=== PATIENT | female | born 1950 | race Caucasian/White ===

== ENCOUNTER 2020-04-21 07:34 | Outpatient (CLI) | payer MEDICARE, SELFPAY ==
--- NOTE | ~2020-04-21 | US_ITS ---
EXAMINATION: US abdomen complete DATE: 04/21/2020 08:07 INDICATION: Upper abdominal pain. Right lower quadrant abdominal pain. TECHNIQUE: Multiple grayscale and Doppler ultrasound images of the abdomen were obtained. COMPARISON: Chest CT 07/27/2019 FINDINGS: Abdominal aorta is normal in caliber. Inferior vena cava is normal. The visualized portions of the head, body, and tail of the pancreas are normal. The liver is normal without focal lesion. Th ere is normal flow in main portal vein. The gallbladder is normal in size. No gallstones or gallbladd er wall thickening. There is no sonographic Harrington sign. The common duct is normal and measures 3 mm. The spleen is normal in size. The kidneys are normal in size. IMPRESSION: 1. Normal complete abdomen ultrasound. Reviewed, dictated and finalized at location A.
== END 2020-04-21 07:35 | disposition home or self-care (01) ==
LOC: ANHIMG 07:39
PROVIDERS: PCP Family Medicine; Visit Provider Family Medicine
DX: R10.9 Unspecified abdominal pain (principal); R63.4 Abnormal weight loss
CPT/HCPCS: 76700

== ENCOUNTER 2020-06-24 01:43 | Outpatient (CLI) | payer MEDICARE, SELFPAY ==
[2020-06-24 18:01] LABS: SARS-CoV-2 RNA PCR Negative
== END 2020-06-24 01:44 | disposition home or self-care (01) ==
LOC: ANHCOVIDDT 01:44
PROVIDERS: PCP Family Medicine; Visit Provider Internal Medicine Gastroenterology
DX: Z01.812 Encounter for preprocedural laboratory examination (principal); Z20.828 Contact with and (suspected) exposure to other viral communicable diseases
CPT/HCPCS: 87635; C9803; U0003

== ENCOUNTER 2020-06-27 02:59 | Day surgery (SDC) | payer MEDICARE, SELFPAY ==
[2020-06-15 14:30] VITALS: BMI 23.4
[2020-06-27 06:59] VITALS: BP 148/89; PULSE 106; RESP 16; TEMP 37.1; O2SAT 100; BMI 23.2
--- NOTE | 2020-06-27 07:18 | WPDANESEPPF ---
Anes - Initial Pre Proc Eval Procedure: Operation Date: 06/27/20 08:00 Proposed Procedures p Esophagogastroduodenoscopy - Chris Holley MD Date/Time: 06/27/20 07:18 Surgeon: Chris Holley MD Pre Op Diagnosis: Gerd/ Abdominal Pain Patient Data Age: 70 Gender: F Height: 5 ft 5 in Weight: 63.4 kg Last Vital Signs Temp 98.7 F 06/27/20 06:59 Pulse 106 H 06/27/20 06:59 Resp 16 06/27/20 06:59 BP 148/89 H 06/27/20 06:59 Pulse Ox 100 06/27/20 06:59 Allergies Allergy/AdvReac Type Severity Reaction Status Date / Time codeine Allergy Unknown Unknown Verified 06/27/20 06:53 Sulfa (Sulfonamide Allergy Unknown Unknown Verified 06/27/20 06:53 Antibiotics) caffeine AdvReac Nausea and Verified 06/27/20 06:53 Vomiting Home Medications Medication Instructions Recorded Confirmed Type levothyroxine 100 mcg tablet 100 mcg PO DAILY #90 tablet 01/19/20 06/15/20 Rx sucralfate 1 gram tablet 1 gm PO .COMPLEX #360 tablet 05/10/20 06/15/20 Rx Vitamin D3 06/15/20 History ascorbic acid (vitamin C) DAILY 06/15/20 History lactobacillus combination no.8 3,000 mmu cells PO DAILY 06/15/20 06/15/20 History [Adult Probiotic] magnesium 06/15/20 History mecobalamin (vitamin B12) 06/15/20 History yrzmwvpfkkwc-ecw-qchq-FA-vit K 1 tablet PO DAILY 06/15/20 06/15/20 History [Adults Multivitamin] Patient hx anesthesia problems: none Family hx anesthesia problems: none PMFSH Past Medical History Medical History (Updated 06/27/20 @ 07:18 by Hemant Bennett MD) GERD (gastroesophageal reflux disease) Hypothyroid Mixed hyperlipidemia Pacemaker Family History Family History (Updated 09/14/18 @ 09:04 by DOCTOR UNKNOWN) Father Family history of alcoholism Family history of lung cancer Mother Carcinoma of colon Other Family history of malignant neoplasm of breast Social History Social History Smoking status: Never smoker Alcohol intake: current Anes - Eval Final PreProcedure Day of Procedure 06/27/20 07:18 Patient weight: normal Heart: regular rate and rhythm Lungs: clear to auscultation Airway: Mallampati scale class II Neurological: alert and oriented Last oral intake: >/= 8 hours ASA classification: III Emergent: no Anesthetic plan: proceed Anesthesia type and monitoring: general GIVS and standard monitoring Informed Consent: The patient's anesthetic plan and its attendant risks and benefits were discussed with the patient/family/POA. Questions were solicited and answers provided to the satisfaction of the patient/family/POA.
[2020-06-27] MEDS: LACTATED RINGERS 1,000 ML 150 ML IV CONT (07:20)
--- NOTE | 2020-06-27 07:38 | WPDGICN ---
Assessment and Plan Assessment and plan (1) Atypical chest pain: Code(s): R07.89 - Other chest pain Status: Acute Assessment and Plan: Patient complains of atypical chest pain. Burning pain suggestive of acid reflux. Poorly responsive to proton pump inhibitors. She does get some relief with Carafate. Plan is to proceed with EGD because of incomplete response to medications. (2) GERD (gastroesophageal reflux disease): Qualifiers: Esophagitis presence: with esophagitis Qualified Code(s): K21.0 - Gastro-esophageal reflux disease with esophagitis Code(s): K21.9 - Gastro-esophageal reflux disease without esophagitis Status: Acute (3) Personal history of colonic polyps: Code(s): Z86.010 - Personal history of colonic polyps Status: Acute Assessment and Plan: Surveillance colonoscopy at 5 year intervals are is advised. (4) FH: colon polyps: Code(s): Z83.71 - Family history of colonic polyps Status: Acute Assessment and Plan: Patient's mother had colon cancer. Plan is for surveillance colonoscopy at 5 year intervals. GI Consult Note Consult date/time: 06/27/20 07:38 HPI: Aníbal Grissom is a 70 year old female Seen in evaluation at the request of Dr. David Martin. Patient has a history of substernal chest pain that began in May of 2019. At that time she suffered a complete heart block and a pacemaker was inserted. Since that time she has complained of substernal chest pain. She describes it as hot hot sensation. It is not related to diet or intake. He denies any dysphagia she denies any weight loss. She has tried proton pump inhibitors including S omeprazole and pantoprazole with no change in symptoms. She has had some mild improvement on taking sucralfate. Patient's family history is noncontributory. She does have a family history of colon polyps. Mother had colon cancer. Past medical history is significant for hypothyroidism additionally a pacemaker for complete heart block. Review of Systems Review of Systems: All systems reviewed & are unremarkable except as noted in HPI and below PMFSH Past Medical History Medical History GERD (gastroesophageal reflux disease) Hypothyroid Mixed hyperlipidemia Pacemaker Family History Family History Father Family history of alcoholism Family history of lung cancer Mother Carcinoma of colon Other Family history of malignant neoplasm of breast Social History Social History Smoking status: Never smoker Alcohol intake: current Meds Home Medications and Allergies Home Medications Medication Instructions Recorded Confirmed Type levothyroxine 100 mcg tablet 100 mcg PO DAILY #90 tablet 01/19/20 06/15/20 Rx sucralfate 1 gram tablet 1 gm PO .COMPLEX #360 tablet 05/10/20 06/15/20 Rx Vitamin D3 06/15/20 History ascorbic acid (vitamin C) DAILY 06/15/20 History lactobacillus combination no.8 3,000 mmu cells PO DAILY 06/15/20 06/15/20 History [Adult Probiotic] magnesium 06/15/20 History mecobalamin (vitamin B12) 06/15/20 History bdnwetonbpdr-xuh-yhwf-FA-vit K 1 tablet PO DAILY 06/15/20 06/15/20 History [Adults Multivitamin] Allergies Allergy/AdvReac Type Severity Reaction Status Date / Time codeine Allergy Unknown Unknown Verified 06/27/20 06:53 Sulfa (Sulfonamide Allergy Unknown Unknown Verified 06/27/20 06:53 Antibiotics) caffeine AdvReac Nausea and Verified 06/27/20 06:53 Vomiting Vital Signs Vital Signs - 24 hr 06/27/20 06:59 Temperature 98.7 F Pulse Rate 106 H Respiratory Rate 16 Blood Pressure 148/89 H Pulse Oximetry 100 Exam Narrative: Exam Narrative: Physical exam reveals patient to be alert. Vital signs stable. HEENT exam unremarkable. Lungs are clear to auscultation and percussion. Heart is wi
[2020-06-27] MEDS: BENZOCAINE (*SP) 60 ML SPRAY CAN (HURRICAINE) 1 SPRAY MUCOUS MEM (07:45)
[2020-06-27 07:57] VITALS: BP 114/67; PULSE 75; RESP 16; O2SAT 100
[2020-06-27 08:07] VITALS: BP 140/74; PULSE 60; RESP 19; O2SAT 100
[2020-06-27 08:17] VITALS: BP 156/89; PULSE 62; RESP 16; O2SAT 100
== END 2020-06-27 08:22 | disposition home or self-care (01) ==
PROVIDERS: PCP Family Medicine; Visit Provider Internal Medicine Gastroenterology
PROC: 0DJ08ZZ Inspection of Upper Intestinal Tract, Via Natural or Artificial Opening Endoscopic (ICD-10-PCS; CPT 43235; principal; 2020-06-27 08:00)
DX: K21.9 Gastro-esophageal reflux disease without esophagitis (principal); R07.89 Other chest pain; Z86.010 Personal history of colon polyps; Z83.71 Family history of colonic polyps; E03.9 Hypothyroidism, unspecified; E78.2 Mixed hyperlipidemia; Z95.0 Presence of cardiac pacemaker
CPT/HCPCS: 43239; 87081; J2704; J7120

== ENCOUNTER 2022-06-17 00:08 | Day surgery (SDC) | payer MEDICARE, SELFPAY ==
[2022-05-30 12:40] VITALS: BMI 24.9
[2022-06-17 07:38] VITALS: BP 146/73; PULSE 59; RESP 16; TEMP 36.4; O2SAT 100
[2022-06-17] MEDS: LACTATED RINGERS 1,000 ML 150 ML IV CONT (07:41)
--- NOTE | 2022-06-17 07:56 | PM.IMHP ---
H&P: HPI History of Present Illness Date/Time: 06/17/22 07:56 Chief Complaint: Family history of colon cancer. Narrative: This is a 72-year-old white female patient presents for screening colonoscopy. Patient's mother had colon cancer. There are several family members with colon polyps. Patient's most recent colonoscopy 2014 was unremarkable. Patient presents today for follow-up screening colonoscopy. Patient reports her current weight appetite bowel movements normal. She denies abdominal pain. She has had no bleeding. Review of Systems Review of Systems: Review of systems noncontributory. [facility] Past Medical History Medical History (Updated 06/17/22 @ 07:58 by Chris Holley MD) Abnormal findings on esophagogastroduodenoscopy (EGD) 8.2020 esophagitis GERD (gastroesophageal reflux disease) Hypothyroid Mixed hyperlipidemia Pacemaker Family History Family History Father Family history of alcoholism Family history of lung cancer Mother Carcinoma of colon Other Family history of malignant neoplasm of breast Social History Social History Smoking status: Former smoker Tobacco type: cigarettes Alcohol intake: current Alcohol use details: socially Substance use type: does not use Living arrangements: with family Spiritual care concerns: No Meds Home Medications and Allergies Home Medications Medication Instructions Recorded Confirmed Type Vitamin D3 1 tablet PO DAILY 06/15/20 06/17/22 History lactobacillus combination no.8 3 3,000 mmu cells PO DAILY 06/15/20 06/17/22 History billion cell capsule (Adult Probiotic) mecobalamin (vitamin B12) 1 tablet PO DAILY 06/15/20 06/17/22 History levothyroxine 100 mcg tablet See Rx Instructions .Route .qd 12/07/20 06/17/22 Rx Sat/Sun #30 tabs levothyroxine 112 mcg tablet See Rx Instructions .Route 12/18/21 06/17/22 Rx .COMPLEX #65 tabs calcium carbonate 500 mg calcium 500 mg PO DAILY 05/30/22 06/17/22 History (1,250 mg) tablet coQ10 (ubiquinol) 200 mg capsule 200 mg PO DAILY 05/30/22 06/17/22 History melatonin 10 mg tablet 10 mg PO HS PRN Sleep 05/30/22 06/17/22 History Allergies Allergy/AdvReac Type Severity Reaction Status Date / Time codeine Allergy Unknown Unknown Verified 06/17/22 07:36 Sulfa (Sulfonamide Allergy Unknown Unknown Verified 06/17/22 07:36 Antibiotics) caffeine AdvReac Nausea and Verified 06/17/22 07:36 Vomiting Vital Signs Vital Signs - 24 hr 06/17/22 07:38 Temperature 97.5 F L Pulse Rate 59 L Respiratory Rate 16 Blood Pressure 146/73 H Pulse Oximetry 100 Oxygen Delivery Room Air Exam Narrative: Physical exam reveals patient to be alert. Vital signs stable. HEENT exam is unremarkable. Patient is anicteric. Lungs are clear to auscultation and percussion. Heart is without murmur or extra sounds. Abdominal exam bowel sounds are present soft nontender with no organomegaly. Digital external rectal exam is normal. Assessment and Plan Assessment and plan (1) Family history of colon cancer in mother: Code(s): Z80.0 - Family history of malignant neoplasm of digestive organs Status: Acute Assessment and Plan: Patient's mother had colon cancer. She herself has had colon polyps in their other family members with colon polyps. Plan is for surveillance colonoscopy at 5 year intervals in the future. Further recommendations may be given after colonoscopy.
--- NOTE | 2022-06-17 08:19 | WPDANESEPPF ---
Anes - Initial Pre Proc Eval Procedure: Operation Date: 06/17/22 08:30 Proposed Procedures p Screening Colonoscopy - Chris Holley MD Date/Time: 06/17/22 08:19 Surgeon: Chris Holley MD Pre Op Diagnosis: family hx of colon ca Patient Data Age: 72 Gender: F Height: 1.65 m Weight: 68.2 kg Last Vital Signs Temp 97.5 F L 06/17/22 07:38 Pulse 59 L 06/17/22 07:38 Resp 16 06/17/22 07:38 BP 146/73 H 06/17/22 07:38 Pulse Ox 100 06/17/22 07:38 O2 Del Method Room Air 06/17/22 07:38 Allergies Allergy/AdvReac Type Severity Reaction Status Date / Time codeine Allergy Unknown Unknown Verified 06/17/22 07:36 Sulfa (Sulfonamide Allergy Unknown Unknown Verified 06/17/22 07:36 Antibiotics) caffeine AdvReac Nausea and Verified 06/17/22 07:36 Vomiting Home Medications Medication Instructions Recorded Confirmed Type Vitamin D3 1 tablet PO DAILY 06/15/20 06/17/22 History lactobacillus combination no.8 3 3,000 mmu cells PO DAILY 06/15/20 06/17/22 History billion cell capsule (Adult Probiotic) mecobalamin (vitamin B12) 1 tablet PO DAILY 06/15/20 06/17/22 History levothyroxine 100 mcg tablet See Rx Instructions .Route .qd 12/07/20 06/17/22 Rx Sat/Sun #30 tabs levothyroxine 112 mcg tablet See Rx Instructions .Route 12/18/21 06/17/22 Rx .COMPLEX #65 tabs calcium carbonate 500 mg calcium 500 mg PO DAILY 05/30/22 06/17/22 History (1,250 mg) tablet coQ10 (ubiquinol) 200 mg capsule 200 mg PO DAILY 05/30/22 06/17/22 History melatonin 10 mg tablet 10 mg PO HS PRN Sleep 05/30/22 06/17/22 History Patient hx anesthesia problems: none Family hx anesthesia problems: none Results Review: All pre-operative results and documents have been reviewed as part of the pre-operative evaluation. [facility] Past Medical History Medical History (Updated 06/17/22 @ 07:58 by Chris Holley MD) Abnormal findings on esophagogastroduodenoscopy (EGD) esophagitis GERD (gastroesophageal reflux disease) Hypothyroid Mixed hyperlipidemia Pacemaker Family History Family History Father Family history of alcoholism Family history of lung cancer Mother Carcinoma of colon Other Family history of malignant neoplasm of breast Social History Social History Smoking status: Former smoker Tobacco type: cigarettes Alcohol intake: current Alcohol use details: socially Substance use type: does not use Living arrangements: with family Spiritual care concerns: No Anes - Eval Final PreProcedure Day of Procedure 06/17/22 08:19 Patient weight: normal Heart: regular rate and rhythm Lungs: clear to auscultation Airway: Mallampati scale class III Neurological: alert and oriented Last oral intake: >/= 8 hours ASA classification: III Emergent: no Anesthetic plan: proceed Anesthesia type and monitoring: general GIVS and standard monitoring Results Review: All pre-operative results and documents have been reviewed as part of the pre-operative evaluation. Informed Consent: The patient's anesthetic plan and its attendant risks and benefits were discussed with the patient/family/POA. Questions were solicited and answers provided to the satisfaction of the patient/family/POA.
[2022-06-17 08:45] VITALS: BP 149/72; PULSE 60; RESP 18; O2SAT 100
[2022-06-17 08:55] VITALS: BP 141/84; PULSE 60; RESP 22; O2SAT 100
[2022-06-17 09:05] VITALS: BP 145/69; PULSE 60; RESP 18; O2SAT 100
== END 2022-06-17 09:17 | disposition home or self-care (01) ==
PROVIDERS: PCP Family Medicine; Visit Provider Internal Medicine Gastroenterology
PROC: 0DJD8ZZ Inspection of Lower Intestinal Tract, Via Natural or Artificial Opening Endoscopic (ICD-10-PCS; CPT 45378; principal; 2022-06-17 08:30)
DX: Z12.11 Encounter for screening for malignant neoplasm of colon (principal); K64.8 Other hemorrhoids; Z80.0 Family history of malignant neoplasm of digestive organs; E78.2 Mixed hyperlipidemia; E03.9 Hypothyroidism, unspecified; K21.9 Gastro-esophageal reflux disease without esophagitis; Z95.0 Presence of cardiac pacemaker; Z87.891 Personal history of nicotine dependence
CPT/HCPCS: G0105; J2704; J7120

== ENCOUNTER → 2022-08-08 09:58 | Outpatient (CLI) | payer MEDICARE, SELFPAY ==
--- NOTE | ~2022-08-08 | DEXA_ITS ---
Bone Density Report Name: ANDREW LING Age: 72 Sex: Female Ethnicity: White Date of : 1950 Indication: postmenopausal; screening for osteoporosis; Referring Provider: NEVAEH ROD Study: Bone densitometry was performed. Exam Date: August 08, 2022 Accession number: [id number] Bone Density: Region BMD T-score Z-score Classification AP Spine (L1-L4) 0.970 -0.7 1.6 Normal Femoral Neck (Left) 0.732 -1.1 0.9 Osteopenia Total Hip (Left) 0.955 0.1 1.8 Normal Femoral Neck (Right) 0.673 -1.6 0.4 Osteopenia Total Hip (Right) 0.876 -0.5 1.1 Normal Total Hip Mean 0.916 -0.2 1.5 Normal World Health Organization criteria for BMD impression classify patients as: Normal (T-score at or above -1.0), Osteopenia (T-score between -1.0 and -2.5), or Osteoporosis (T-score at or below -2.5). 10-year Fracture Risk(1): Major Osteoporotic Fracture 11% Hip Fracture 2.0% Reported Risk Factors: [place] (), Neck BMD=0.673, BMI=25.8 (1) FRAX(R) Version 3.08. Fracture probability calculated for an untreated patient. Fracture probability may be lower if the patient has received treatment. Previous Exams: Region Exam Age BMD T-score BMD Change BMD Change Date g/cm2 vs Baseline vs Previous AP Spine(L1-L4) 08/08/2022 72 0.970 -0.7 -0.004 -0.006 12/09/2017 67 0.976 -0.6 0.002 0.019 08/14/2015 65 0.957 -0.8 -0.017 0.009 05/06/2012 62 0.948 -0.9 -0.026 0.082* 04/23/2010 60 0.866 -1.6 -0.108 -0.108 01/16/2004 53 0.974 -0.7 Total Hip(Left) 08/08/2022 72 0.955 0.1 0.120 0.009 12/09/2017 67 0.946 0.0 0.111 0.013 08/14/2015 65 0.933 -0.1 0.098 0.016 05/06/2012 62 0.917 -0.2 0.082 0.042* 04/23/2010 60 0.875 -0.5 0.040 0.040 01/16/2004 53 0.835 -0.9 Total Hip(Right) 08/08/2022 72 0.876 -0.5 0.070 -0.034* 12/09/2017 67 0.911 -0.3 0.104 -0.001 08/14/2015 65 0.912 -0.2 0.105 0.021 05/06/2012 62 0.891 -0.4 0.084 0.047* 04/23/2010 60 0.844 -0.8 0.037 0.037 01/16/2004 53 0.807 -1.1 *Denotes significance at 95% confidence level, LSC for AP Spine = 0.022 g/cm2, LSC for Total Hip = 0.027 g/cm2 Clinical Information Provided by Patient:
--- NOTE | ~2022-08-08 | MM_ITS ---
EXAMINATION: MM screening gerri BI w greg HISTORY: Screening mammogram TECHNIQUE: Craniocaudal and mediolateral oblique 3-D tomosynthesis images were obtained and synthetic 2-D images were generated. CAD analysis was submitted and interpreted. COMPARISON: 03/09/2019, 12/09/2017, 11/26/2016 bilateral screening mammogram examinations BREAST PARENCHYMAL COMPOSITION: There are scattered areas of fibroglandular density. FINDINGS: Approximately 7.5 cm circumscribed mass is suggested in the central upper right breast 5 cm deep to the nipple on CC projection (CC Tomosynthesis image 30/61; MLO Tomosynthesis image 30/).. Diagnostic right mammogram and right breast ultrasound examination are recommended. Otherwise there is no evidence of suspicious mass, calcification, or architectural distortion to sugg est malignancy in either breast. There has been no other suspicious interval change. IMPRESSION: 1. 7.5 cm mass in central upper right breast 2. Diagnostic right mammogram and right breast ultrasound examination are recommended BI-RADS Category 0: Incomplete: Needs additional imaging evaluation. Reviewed, dictated and finalized at location A. IMPRESSION: 1. 7.5 cm mass in central upper right breast 2. Diagnostic right mammogram and right breast ultrasound examination are recom mended BI-RADS Category 0: Incomplete: Needs additional imaging evaluation.
== END ==
PROVIDERS: PCP Family Medicine; Visit Provider Family Medicine
DX: Z12.31 Encounter for screening mammogram for malignant neoplasm of breast (principal); Z79.899 Other long term (current) drug therapy; R92.8 Other abnormal and inconclusive findings on diagnostic imaging of breast; M85.852 Other specified disorders of bone density and structure, left thigh; M85.851 Other specified disorders of bone density and structure, right thigh
CPT/HCPCS: 77063; 77067; 77080

== ENCOUNTER → 2022-08-22 08:33 | Outpatient (CLI) | payer MEDICARE, SELFPAY ==
--- NOTE | ~2022-08-22 | MMUS_ITS ---
EXAMINATION: MM diagnostic gerri RT w greg, US breast RT limited HISTORY: Follow-up right breast asymmetry TECHNIQUE: Additional 3-D tomosynthesis images of the right breast were performed and synthetic 2-D i mages were generated. CAD analysis was submitted and interpreted. High resolution Limited right breas t ultrasound was performed. COMPARISON: Comparison to multiple prior studies sequentially, with oldest reviewed study dated 03/2015. BREAST PARENCHYMAL COMPOSITION: Breast composed of scattered areas of fibroglandular density FINDINGS: MAMMOGRAPHIC FINDINGS: There is a stable mass in the upper central aspect of the right breast, middle third. No new masses, calcifications or architectural distortion. ULTRASOUND: Limited right breast ultrasound: At 12:00 there is an oval hypoechoic mass measuring 8 x 7 x 3 mm wit h echogenic hilum, compatible with intramammary lymph node. This likely corresponds to the mammograph ic finding. At 3:00, 2 cm from the nipple, there is a 3 mm cyst. No sonographic evidence for malignan cy. IMPRESSION: 1. No evidence for malignancy in the right breast. Benign findings. 2. Routine yearly screening mammogram and regular clinical breast examination are recommended. BI-RADS Category 2: Benign finding(s). Reviewed, dictated and finalized at location A. IMPRESSION: 1. No evidence for malignancy in the right breast. Benign findings. 2. Routine yearly screening mammogram and regular clinical breast examination a re recommended. BI-RADS Category 2: Benign finding(s).
== END ==
PROVIDERS: PCP Family Medicine; Visit Provider Physician Assistant
DX: N63.10 Unspecified lump in the right breast, unspecified quadrant (principal); R92.8 Other abnormal and inconclusive findings on diagnostic imaging of breast
CPT/HCPCS: 76642; 77061; 77065; G0279

== ENCOUNTER 2023-05-22 14:08 | Outpatient (CLI) | payer MEDICARE, SELFPAY ==
[2023-05-22 17:10] LABS: Kit Draw Collected
== END 2023-05-22 14:09 | disposition home or self-care (01) ==
LOC: ANHGOSHLAB 14:10
PROVIDERS: PCP Family Medicine; Visit Provider Family Medicine
DX: E03.9 Hypothyroidism, unspecified (principal); M85.80 Other specified disorders of bone density and structure, unspecified site; Z11.59 Encounter for screening for other viral diseases
CPT/HCPCS: 36415

== ENCOUNTER → 2023-08-21 11:07 | Outpatient (CLI) | payer MEDICARE, SELFPAY ==
--- NOTE | ~2023-08-21 | MM_ITS ---
EXAMINATION: MM screening gerri BI w greg HISTORY: Screening mammogram TECHNIQUE: Craniocaudal and mediolateral oblique 3-D tomosynthesis images were obtained and synthetic 2-D images were generated. CAD analysis was submitted and interpreted. COMPARISON: 08/22/2022 diagnostic right mammogram and limited right breast ultrasound 08/08/2022, 03/09/2019 bilateral screening mammogram examinations BREAST PARENCHYMAL COMPOSITION: There are scattered areas of fibroglandular density. FINDINGS: There is a 4 mm mass in the inner aspect of the mid right breast. Diagnostic right mammogra m and right breast ultrasound examination are recommended. No suspicious mass, architectural distortion, malignant calcification, skin thickening or retraction or significant new or developing density is noted elsewhere in either breast. IMPRESSION: 1. New 4 mm mass in inner mid right breast 2. Diagnostic right mammogram and right breast ultrasound examination are recommended BI-RADS Category 0: Incomplete: Needs additional imaging evaluation. Reviewed, dictated and finalized at location A. IMPRESSION: 1. New 4 mm mass in inner mid right breast 2. Diagnostic right mammogram and right breast ultrasound examination are recom mended BI-RADS Category 0: Incomplete: Needs additional imaging evaluation.
== END ==
PROVIDERS: PCP Family Medicine; Visit Provider Family Medicine
DX: Z12.31 Encounter for screening mammogram for malignant neoplasm of breast (principal); R92.8 Other abnormal and inconclusive findings on diagnostic imaging of breast
CPT/HCPCS: 77063; 77067

== ENCOUNTER → 2023-09-11 08:51 | Outpatient (CLI) | payer MEDICARE, SELFPAY ==
--- NOTE | ~2023-09-11 | MMUS_ITS ---
EXAMINATION: MM diagnostic gerri RT w greg, US breast RT limited HISTORY: Right breast mass on screening mammogram TECHNIQUE: Additional 3-D tomosynthesis images of the right breast were performed and synthetic 2-D i mages were generated. CAD analysis was submitted and interpreted. High resolution limited right breas t ultrasound was performed. COMPARISON: 08/21/2023, 08/22/2022, 08/08/2022, 03/09/2019 FINDINGS: MAMMOGRAPHIC FINDINGS: There is a 3 mm round, circumscribed, equal density mass in the middle third of the inner breast at t he 3:00 location, 5 cm from the nipple. No suspicious calcification or architectural distortion are i dentified. ULTRASOUND: There is a 3 mm cyst at the 3:00, 3 cm from the nipple. IMPRESSION: 1. No mammographic or sonographic evidence of malignancy. 2. Recommend routine screening mammography in one year. BI-RADS Category 2: Benign finding(s). Reviewed, dictated and finalized at location A. IMPRESSION: 1. No mammographic or sonographic evidence of malignancy. 2. Recommend routine screening mammography in one year. BI-RADS Category 2: Benign finding(s).
== END ==
PROVIDERS: PCP Family Medicine; Visit Provider Family Medicine
DX: R92.8 Other abnormal and inconclusive findings on diagnostic imaging of breast (principal)
CPT/HCPCS: 76642; 77061; 77065; G0279

== ENCOUNTER 2024-06-10 07:54 | Outpatient (CLI) | payer MEDICARE, SELFPAY ==
[2024-06-10 19:44] LABS: Alanine Aminotransferase 22 U/L (6-35); Albumin Level 4.7 g/dL (3.5-5.1); Alkaline Phosphatase 49 U/L (38-126); Anion Gap 11 mmol/L (4-12); Aspartate Amino Transferase 34 U/L (14-36); Bilirubin,Total 0.5 mg/dL (0.2-1.3); Blood Urea Nitrogen 10 mg/dL (7-17); Calcium 9.3 mg/dL (8.4-10.2); Carbon Dioxide 29 mmol/L (22-30); Chloride 100 mmol/L (98-107); Cholesterol 200 mg/dL (0-200); Estimated Glomerular Filt Rate > 60; Glucose 89 mg/dL (65-110); HDL Direct 85 mg/dL; Potassium 4.8 mmol/L (3.4-5.0); Sodium 140 mmol/L (137-145); Triglycerides 81 mg/dL (<150)
[2024-06-10 19:54] LABS: LDL Cholesterol Direct 84 mg/dL
[2024-06-10 20:03] LABS: Vitamin D 25 Hydroxy 47.8 ng/mL
== END 2024-06-10 07:55 | disposition home or self-care (01) ==
LOC: ANHGOSHLAB 07:56
PROVIDERS: PCP Family Medicine; Visit Provider Family Medicine
DX: M85.80 Other specified disorders of bone density and structure, unspecified site (principal); Z78.0 Asymptomatic menopausal state; E03.9 Hypothyroidism, unspecified; E78.2 Mixed hyperlipidemia
CPT/HCPCS: 36415; 80053; 80061; 82306; 82607; 84443

== ENCOUNTER 2025-06-15 08:57 | Outpatient (CLI) | payer MEDICARE, SELFPAY ==
--- OUTSIDE RECORDS SUMMARY | 2025-06-15 09:15 | XMS_ITS | Clinical Summary ---
Author Organization [facility] [address] Address [address] [place] [address] Care Team Providers Care Equipment Sterilizer Name Role Phone Svitlana Martin MD Primary Care Provider + Allergies Active Allergy Reactions Criticality Noted Date Comments Caffeine Nausea only Low 11/10/1999 Codeine Vomiting Low 05/25/2019 Sulfa (Sulfonamide Antibiotics) Eye irritation Low 05/25/2019 Medications levothyroxine (SYNTHROID) 112 mcg tablet 2 Active atorvastatin (LIPITOR) 10 mg tablet Take 1 tablet (10 mg total) by mouth daily Active levothyroxine (SYNTHROID) 100 mcg tablet Take 1 tablet (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 Dx; CHB. DOI 05/26/2019-[employer]. [employer] remote monitoring. Encounters Date Type Department Care Team Description 06/15/2025 8:30 AM CDT Ancillary Procedure [facility] Card[facility] [address] [place] [address] Complete heart block (HCC); Cardiac pacemaker 03/31/2025 9:15 AM CDT Office Visit [facility] [address] [place] [address] Mike Paul MD Chest discomfort (Primary Dx); Intermittent complete heart block (HCC); Need for lipid screening from Last 3 Months Surgical History Surgery Date Site/Laterality Comments SECTION CLEFT LIP REPAIR SECTION , , Medical History Medical History Date Comments Pacemaker Thyroid disease Sleep apnea GERD (gastroesophageal reflux disease) 06/28 Heart disease 05/25/19 Family History Medical History Relation Name Comments pacemaker Brother 1 No Known Problems Brother 2 Alcohol abuse Father Zeyad De Jesus Colon cancer Mother Cancer Mother's Sister Milagros De Jesus Relation Name Status Comments Brother 1 Alive Brother 2 Alive Father Zeyad De Jesus Mother Alive Mother's Sister Milagros De Jesus Sister 1 Alive Sister 2 Alive Sister 3 Alive Social History Tobacco Use Types Packs/Day Years Used Date Smoking Tobacco: Former Cigarettes Q uit: 07/27/1979 Smokeless Tobacco: Never Tobacco Cessation:Counseling Given: Not Answered Alcohol Use Standard Drinks/Week Comments Yes 0 (1 standard drink = 0.6 oz pur e alcohol) AUDIT-C Answer Date Recorded Frequency of Alcohol Consumption Monthly or less 07/02/2019 Average Number of Drinks Not on file 019 Frequency of Binge Drinking Not on file 06/11 Comments Unknown Sex and Gender Information Value Date Recorded Sex Assigned at Not on file 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 Gender Identity Female 05/04/2020 12:41 PM CDT Sexual Orientation Not on file Obstetrics History Last Filed Vital Signs Vital Sign Reading Time Taken Comments Blood Pressure 120/70 03/31/2025 9:13 AM CDT Pulse 93 03/31/2025 9:13 AM CDT Temperature - - Respiratory Rate 12 05/11/2020 8:34 AM CDT Oxygen Saturation 99% 03/31/2025 9:13 AM CDT Inhaled Oxygen Concentration - - Weight 69.9 kg (154 lb 3.2 oz) 03/31/2025 9:13 A M CDT Height 165.1 cm (5' 5) 03/31/2025 9:13 AM CDT Body Mass Index 25.66 03/31/2025 9:13 AM CDT Plan of Treatment Health Maintenance Due Date Last Done Comments Depression Screening 1950 Fall Risk Assessment 1950 Hepatitis C Screening 1950 Osteoporosis Screening-Bone Density Scan 1950 DTaP/Tdap/Td Vaccine (1 - Tdap) 1960 Hepatitis B Screening 1967 Pneumococcal vaccine 65+ (1 of 1 - PCV) 1999 Well Visit 65+ 2014 Covid-19 Vaccine (2023-2 5 season) 2024 07/31/2023, 03/12/2023, 07/25/2022, Additional history exists Influenza Vaccine (#1) 2025 , 07/25/2022, 09/01/2018 Zoster Vaccine Completed 09/10/2022, 07/03/2022 Procedures Procedure Name Priority Date/Time Associated Diagnosis Comments POCT LIPID PANEL Routine 03/31/2025 9:46 AM CDT Need for lipid screening from Last 3 Months Results * (ABNORMAL) POCT lipid panel (03/31/2025 9:46 AM CDT) Cholesterol, POC 204 <200 MG/DL HDL, POC 90 >=40 mg/dL Triglycerides, POC 87 <=149 mg/dL LDL Cholesterol POC 97 <=129 mg/dL Chol/HDL Ratio, POC 1.1 NONE Non-HDL Cholesterol, POC 114 NONE mg/dL Cholesterol Total, POC 204(A) 30 - 199 mg/dL Capillary blood 03/31/2025 9 :46 AM CDT Mike Paul MD POINT OF CARE TEST ORDER JORGE Final Result from Last 3 Months Insurance AET MEDICARE GOLD Care Teams Equipment Sterilizer Relationship Specialty Start Date End Date Svitlana Martin MD PCP - General Family Medicine 05/24/19
--- OUTSIDE RECORDS SUMMARY | 2025-06-15 09:15 | XMS_ITS | Encounter Summary ---
Author Organization [facility] Healthcare Address [address] [place] [address] Care Team Providers Care Dust Sampler Name Role Phone Svitlana Martin MD Primary Care Provider + Reason for Visit * Cardiology (Routine) - Closed Specialty Diagnoses / Procedures Referred By Contac t Referred To Contact Diagnoses Complete heart block (HCC) Cardiac pacemaker Procedures DEVICE CHECK - IN OFFICE Mike Paul MD [address] [address] Phone: tel: fax: [facility] Referral ID Status Reason Start Date Expiration Date Visits Re quested Visits Authorized [id number] Closed 03/05/2023 04/03/2024 1 1 Encounter Details Date Type Department Care Team (Latest Contact Info) Description 06/15/2025 8:30 AM CDT Ancillary Procedure [facility] Cardiology [address] [place] [id number] Complete heart block (HCC); Cardiac pacemaker Social History Tobacco Use Types Packs/Day Years Used Date Smoking Tobacco: Former Cigarettes Q uit: 07/27/1979 Smokeless Tobacco: Never Alcohol Use Standard Drinks/Week Comments Yes 0 [...] on file 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 Gender Identity Female 05/04/2020 12:41 PM CDT Sexual Orientation Not on file documented as of this encounter Plan of Treatment Pending Results Name Type Priority Associated Diagnoses Date /Time DEVICE CHECK - IN OFFICE Cardiac Services Routine Complete heart block (HCC) Cardiac pacemaker 06/15/2025 8:17 AM CDT documented as of this encounter Visit Diagnoses Diagnosis Complete heart block (HCC) Atrioventricular block, complete Cardiac pacemaker Cardiac pacemaker in situ documented in this encounter Care Teams Dust Sampler Relationship Specialty Start Date End Date Svitlana Martin MD PCP - General Family Medicine 05/24/19 documented as of this encounter
[2025-06-15 18:29] LABS: Alanine Aminotransferase 21 U/L (6-35); Albumin Level 4.8 g/dL (3.5-5.1); Alkaline Phosphatase 50 U/L (38-126); Anion Gap 10 mmol/L (4-12); Aspartate Amino Transferase 46 U/L (14-36); Bilirubin,Total 0.5 mg/dL (0.2-1.3); Blood Urea Nitrogen 8 mg/dL (7-17); Calcium 9.9 mg/dL (8.4-10.2); Carbon Dioxide 27 mmol/L (22-30); Chloride 101 mmol/L (98-107); Cholesterol 233 mg/dL (0-200); Estimated Glomerular Filt Rate > 60; Glucose 82 mg/dL (65-110); HDL Direct 93 mg/dL; Potassium 4.1 mmol/L (3.4-5.0); Sodium 138 mmol/L (137-145); Total Protein 8.5 g/dL (6.3-8.2); Triglycerides 83 mg/dL (<150)
[2025-06-15 19:04] LABS: Thyroid Stimulating Hormone 1.550 uIU/mL (0.465-4.680)
[2025-06-15 19:25] LABS: Vitamin B12 > 1000.0 pg/mL (239-931)
== END 2025-06-15 08:58 | disposition home or self-care (01) ==
LOC: ANHGOSHLAB 08:58
PROVIDERS: PCP Family Medicine; Visit Provider Family Medicine
DX: E03.9 Hypothyroidism, unspecified (principal); R20.0 Anesthesia of skin; M85.80 Other specified disorders of bone density and structure, unspecified site; Z78.0 Asymptomatic menopausal state; E78.2 Mixed hyperlipidemia
CPT/HCPCS: 36415; 80053; 80061; 82306; 82607; 84443